=== PATIENT | female | born 1985 | race Caucasian/White ===

== ENCOUNTER → 2021-05-21 | Outpatient (CLI) | payer BC ==
--- NOTE | 2021-05-21 14:27 | MR ---
EXAMINATION TYPE: MR shoulder RT wo con DATE OF EXAM: 05/21/2021 COMPARISON: Shoulder pain HISTORY: pain in shoulder for 6 months. hurts to raise arm. TECHNIQUE: Multiplanar, multisequence imaging of the right shoulder is performed without contrast. FINDINGS: Rotator Cuff: There is dark T1/T2 signal associated with the supraspinatus tendon at the footplate, p ossibly calcium in correlation with plain radiograph may be helpful. There is partial thickness under surface tearing of the supraspinatus and infraspinatus tendon at the footplate with associated tendin opathy. The subscapularis and teres minor tendons are intact. Acromioclavicular Joint: Acromioclavicular joint is unremarkable without os acromiale or subacromial spur. There is fluid in the subacromial/subdeltoid bursa. Glenohumeral Joint: Articular cartilage is unremarkable. No definite glenohumeral joint effusion. Labrum: The labrum appears grossly intact given limitation of non-arthrogram study. Biceps Tendon: The long head of biceps is in normal location within bicipital groove. Bone marrow signal: No focal abnormal marrow signal is appreciated. Other: No additional significant abnormality is appreciated. IMPRESSION: 1. T1/T2 dark signal at the supraspinatus tendon attachment at the footplate most likely represents c alcium. Correlation with plain radiograph would be helpful for further evaluation. 2. Supraspinatus and infraspinatus tendinopathy is present with partial-thickness undersurface tearin g. 3. Fluid in the subacromial/subdeltoid bursa.
== END | disposition home or self-care (01) ==
LOC: RADMRIMAIN 12:58
PROVIDERS: ATTEND Orthopaedic Surgery
DX: M67.813 Other specified disorders of tendon, right shoulder (principal)